=== PATIENT | male | born 1965 | race Caucasian/White ===

== ENCOUNTER → 2023-03-28 08:19 | Outpatient (CLI) | payer BC, SELFPAY ==
--- NOTE | ~2023-03-28 | MR_ITS ---
MRI of the right knee Clinical history: Internal derangement Technique: Coronal proton density and proton density-weighted images, sagittal proton-density and T2 fat-sat images, and axial proton-density fat-saturated images were acquired. Findings: Anterior and posterior cruciate ligaments are intact. Medial collateral ligament and the la teral collateral ligament complex are intact. Popliteus tendon is intact. There is complex tearing of the posterior horn of the medial meniscus, extending into the body segmen t. There is probable associated developing posterior parameniscal cyst measuring 9 mm in maximum diam eter. No lateral meniscal tear seen. There is mild chondral thinning at the medial joint line. Articular cartilage in the remainder of the knee is well preserved. Bone marrow signals are unremarkable. Extensor mechanism is intact. Small joint effusion present. No Hilario's cyst. Impression: Complex tearing of the posterior horn and body of the medial meniscus with probable associated develo ping posterior 9 mm parameniscal cyst. Reviewed, dictated and finalized at location . [employer] Impression: Complex tearing of the posterior horn and body of the medial meniscus with prob able associated developing posterior 9 mm parameniscal cyst.
== END ==
PROVIDERS: PCP Family Medicine Sports Medicine; Visit Provider Family Medicine Sports Medicine
DX: S83.231A Complex tear of medial meniscus, current injury, right knee, initial encounter (principal); X58.XXXA Exposure to other specified factors, initial encounter
CPT/HCPCS: 73721